=== PATIENT | male | born 1955 | race Two or more races ===

== ENCOUNTER 2016-10-15 09:13 | Outpatient (CLI) | payer BC ==
[2016-10-15 10:06] LABS: BASOPHILS % (AUTO) 0.7 % (0.0-2.0); EOSINOPHILS # (AUTO) 0.1 /CMM (0.0-0.7); EOSINOPHILS % (AUTO) 2.1 % (0.0-6.0); HEMATOCRIT 48 % (39-51); HEMOGLOBIN 15.6 g/dL (13.5-17.5); LYMPHOCYTES # (AUTO) 1.9 /CMM (0.8-4.8); LYMPHOCYTES % (AUTO) 33.8 % (20.0-44.0); MEAN CORPUSCULAR HEMOGLOBIN 28 PG (26.0-33.0); MEAN CORPUSCULAR HGB CONC 33 g/dl (31.0-36.0); MEAN CORPUSCULAR VOLUME 87 fL (80-96); MONOCYTES # (AUTO) 0.6 /CMM (0.1-1.30); MONOCYTES % (AUTO) 10.4 % (2.0-12.0); PLATELET COUNT (AUTO) 282 /CMM (150-450); RED BLOOD CELL COUNT(AUTO) 5.55 MIL/uL (4.5-6.0); WHITE BLOOD COUNT (AUTO) 5.6 K/uL (4.3-11.0)
[2016-10-15 10:26] LABS: ALBUMIN 4.2 g/dL (3.4-5.0); BILIRUBIN,TOTAL 0.4 mg/dL (0.2-1.0); CALCIUM, SERUM 9.6 mg/dL (8.5-10.1); CREATININE 0.8 mg/dL (0.6-1.3); POTASSIUM 4.4 mmol/L (3.5-5.1); TOTAL PROTEIN, SERUM 8.4 g/dL (6.4-8.2)
[2016-10-15 10:39] LABS: PROSTATE SPECIFIC ANTIGEN SCR 3.89 ng/mL (0.00-4.00); THYROID STIMULATING HORMONE 2.513 uIU/mL (0.358-3.74)
== END 2016-10-15 23:59 | disposition home or self-care (01) ==
LOC: LAB 09:13
PROVIDERS: ATTEND Family Medicine
DX: Z00.01 Encounter for general adult medical examination with abnormal findings (principal); Z11.59 Encounter for screening for other viral diseases; N40.0 Benign prostatic hyperplasia without lower urinary tract symptoms; E55.9 Vitamin D deficiency, unspecified; E78.5 Hyperlipidemia, unspecified
CPT/HCPCS: 36415; 80053-TC; 80061-TC; 82306; 84153-TC; 84439-TC; 84443-TC; 85025-TC; 86803

== ENCOUNTER 2017-09-12 09:43 | Outpatient (CLI) | payer BC ==
[2017-09-12 10:30] LABS: BILIRUBIN,TOTAL 0.3 mg/dL (0.2-1.0); CALCIUM, SERUM 8.8 mg/dL (8.5-10.1); CREATININE 0.9 mg/dL (0.6-1.3); POTASSIUM 4.4 mmol/L (3.5-5.1)
[2017-09-12 10:37] LABS: THYROID STIMULATING HORMONE 1.956 uIU/mL (0.358-3.74)
[2017-09-12 11:03] LABS: HEMATOCRIT 45 % (39-51); HEMOGLOBIN 14.5 g/dL (13.5-17.5); MEAN CORPUSCULAR HEMOGLOBIN 28 PG (26.0-33.0); MEAN CORPUSCULAR HGB CONC 33 g/dl (31.0-36.0); MEAN CORPUSCULAR VOLUME 87 fL (80-96); PLATELET COUNT (AUTO) 263 /CMM (150-450); RDW COEFFICIENT OF VARIATION 14.5 (11.5-15.0); RED BLOOD CELL COUNT(AUTO) 5.13 MIL/uL (4.5-6.0); WHITE BLOOD COUNT (AUTO) 4.6 K/uL (4.3-11.0)
[2017-09-12 12:09] LABS: LYMPHOCYTES % (MANUAL) 25 % (16-48); MONOCYTES % (MANUAL) 5 % (0-11.0); NEUTROPHILS % (MANUAL) 70 (42-76)
[2017-09-16 04:21] LABS: VITAMIN B6 26.2 ug/L (5.3-46.7)
[2017-09-16 12:18] LABS: VITAMIN B1 THIAMINE,WB 109.8 nmol/L (66.5-200.0)
== END 2017-09-12 23:59 | disposition home or self-care (01) ==
LOC: LAB 09:43
PROVIDERS: ATTEND Family Medicine
DX: R20.9 Unspecified disturbances of skin sensation (principal)
CPT/HCPCS: 36415; 80053-TC; 80061-TC; 82306; 84207; 84425; 84439-TC; 84443-TC; 85025-TC

== ENCOUNTER 2017-09-19 08:43 | Outpatient (CLI) | payer BC ==
[2017-09-19] MEDS ORDERED: GADODIAMIDE 2.5 MMOL/5 ML VIAL IJ ONE (08:44)
== END 2017-09-19 23:59 | disposition home or self-care (01) ==
LOC: MRI 08:43
PROVIDERS: ATTEND Family Medicine
DX: M48.07 Spinal stenosis, lumbosacral region (principal)
CPT/HCPCS: 70553-TC; 72148-TC

== ENCOUNTER 2019-02-05 13:04 | Outpatient (CLI) | payer BC | END 2019-02-05 23:59 | disposition home or self-care (01) | LOC: RAD 13:04 | PROVIDERS: ATTEND Family Medicine | DX: M17.11 Unilateral primary osteoarthritis, right knee (principal) | CPT/HCPCS: 73562 ==

== ENCOUNTER 2019-02-07 13:02 | Outpatient (CLI) | payer BC | END 2019-02-07 23:59 | disposition home or self-care (01) | LOC: MRI 13:02 | PROVIDERS: ATTEND Family Medicine | DX: S83.241A Other tear of medial meniscus, current injury, right knee, initial encounter (principal); M25.461 Effusion, right knee; M17.11 Unilateral primary osteoarthritis, right knee; X58.XXXA Exposure to other specified factors, initial encounter; Y93.89 Activity, other specified; Y92.89 Other specified places as the place of occurrence of the external cause; Y99.8 Other external cause status | CPT/HCPCS: 73721-TC; 93971-TC ==